=== PATIENT | male | born 1970 | race Caucasian/White ===

== ENCOUNTER 2017-07-06 00:45 | Inpatient (IN) | payer MEDICAID ==
[2017-07-06] VITALS (10 sets, daily range): BP systolic 92–114; BP diastolic 65–91; BMI 24.4
[~2017-07-06] VITALS: Ht 188 cm; Wt 82.1 kg
--- NOTE | ~2017-07-06 | EC ---
PATIENT:CORINA KUMARI DATE OF SERVICE: 07/06/17 SEX: M MEDICAL RECORD: [id number] DATE OF : 66 LOCATION:[facility] AGE OF PATIENT: 47 ADMISSION DATE: 07/06/17 REFERRING PHYSICIAN: INTERPRETING PHYSICIAN: LUZMA MCNALLY MD ECHOCARDIOGRAM REPORT ECHO CHARGES 4 ECHO COMPLETE CLINICAL DIAGNOSIS: CP ECHOCARDIOGRAPHIC MEASUREMENTS (adult normal given) AC root (d.<3.7cm) 3.7 cm LV Septum d (<1.2 cm> 1.1 cm Valve Excursion 2.0 cm LV Septum (systole) 1.5 cm Left Atria (s.<4.0cm> 4.5 cm LVPW d(<1.2cm) 1.1 cm RV (d.<2.3cm) 4.2 cm LVPW (sytole) 1.5 cm LV diastole(<5.6CM) 4.0 cm MV E-F(>70mm/sec) cm LV systole 2.0 cm LVOT Diameter 2.0 cm MV exc.(>10mm) cm Est.ejection fraction (50-75%) % Pericardial Effusion N DOPPLER: LVIT cm/sec A 34.0 cm/sec E 51.0 cm/sec LA cm/sec RVSP 54.3 mmHg LVOT 75.0 cm/sec AOP1/2T m/s Asc. Ao 101 cm/sec RVOT 40.0 cm/sec RA cm/sec PA 48.0 cm/sec AV Gradient Peak 4.1 mmHg AV Mean 2.4 mmHg AV Area 2.5 cm MV Gradient Peak 1.8 mmHg MV Mean 0.57 mmHg MV Area cm COMMENTS: General Assembler Installer: Leanne LINDQUIST Director Drug Safety: 1 Dr. Mcnally TAPE# PACS DATE OF SERVICE: 07/06/2017 FINDINGS: 1. Left ventricular chamber size is mildly dilated. Left ventricular systolic function is markedly reduced. Overall ejection fraction 30%. 2. Left atrium is dilated at 4.5 cm. Right atrium and right ventricular chamber sizes are severely dilated. 3. Valvular structures have normal structure and motion. 4. Doppler interrogation reveals [id number]-ax-[id number] tricuspid regurgitation. No other valvular insufficiency or stenosis. Pulmonary systolic pressure is ECHOCARDIOGRAM REPORT [id number] CORINA KUMARI elevated, estimated at 54 mmHg. 5. No evidence of pericardial effusion or left ventricular thrombus. TRANSINT:[id number] Voice Confirmation ID: [id number] DOCUMENT ID: [id number] LUZMA MCNALLY MD at 1202 CC: [id number] DICTATION DATE: 07/06/17 1240 RETAIL BAKERY MANAGER: 07/06/17 1253 ADM IN [facility] [address] [id number]
--- NOTE | ~2017-07-06 | HEMODYNAMI ---
PATIENT:CORINA KUMARI MEDICAL RECORD: [id number] : 66 LOCATION:[facility] D.2307 ADMISSION DATE: 07/06/17 Generatedon:07/08/201715:22 Patient name: CORINA KUMARI Patient #: [id number] SSN: : 1970 Date of study: 07/08/2017 Page: Of Hemodynamic Procedure Report Patient Data Patient Demographics Procedure consent was obtained First Name: CORINA Gender: Male Last Name: KENYETTA : 1970 Patient #: [id number] Age: 47 year(s) Race: Unknown Additional ID: [id number] Contact details [address]: [address] [place] [address] State: [place] City: [place] Zip code: [address] Admission Admission Data Admission Date: 07/06/2017 Admission Time: 0:45 Room #: D.2307 Procedure Procedure Types Cath Procedure Diagnostic Procedure Right Heart RHC and LHC w/Coronaries Procedure Description Procedure Date Procedure Date: 07/08/2017 Procedure Start Time: 15:09 Procedure End Time: 15:21 Procedure Staff Name Function Roger Mcnally MD Performing Physician Inna Swanson RT Monitor Nimisha Garcia RT Scrub Wolf Hernandez RN Nurse Procedure Data Cath Procedure Fluoroscopy Diagnostic fluoroscopy Total fluoroscopy Time: 1.6 time: 1.6 min min Diagnostic fluoroscopy Total fluoroscopy dose: 250 dose: 250 mGy mGy Contrast Material Contrast Material Type Amount (ml) Isovue 300 41 Entry Location Entry Primary Successful Side Size Upsize Upsize Entry Closure Workman ccessful Closure Location (Fr) 1 (Fr) 2 (Fr) Remarks Device Remarks Femoral Right 7 Fr Manual vein Short Compression Femoral Right 5 Fr Exoseal artery Estimated blood loss: 5 ml Diagnostic catheters Device Type Used For End Catheter Placement SWAN 7Fr Thermodilution Right heart cath cather (131F7P) MULTIPACK Pigtail 5 Fr LV Angiography catheter MULTIPACK JL 4.0 5Fr Left Coronary catheter Angiography MULTIPACK 3DRC 5Fr Right Coronary catheter Angiography Procedure Complications No complications Procedure Medications Medication Administration Route Dosage Oxygen NRB 16 l/min Lidocaine 2% added to field 20 Heparin Flush Bag added to field 2 bags (1000units/500ml NS) 0.9% NaCl I.V. 50 ml/hr Fentanyl I.V. 50 mcg Hemodynamics Rest Heart Rate: 75 (bpm) Pressure Samples Time Site Value (mmHg) Purpose Heart Use Rate(bpm) 15:11 PCW 3/3(1) Snapshot 76 15:12 PA 56/35(42) Snapshot 77 15:13 RV 29/7,18 Snapshot 76 15:13 RA 20/28(20) Snapshot 73 Snapshots Pre Cath Intra NCS Post Cath Vital Signs Time Heart Resp SPO2 etCO2 NIBP (mmHg) Rhythm Pain Sedation Rate (ipm) (%) (mmHg) Status Level (bpm) 14:54:57 74 12 63 0 107/81(95) NSR 0 (11) 9(A) , No pain 14:58:59 73 18 66 0 106/75(89) NSR 0 (11) 9(A) , No pain 15:03:00 75 12 62 0 102/74(87) NSR 0 (11) 9(A) , No pain 15:07:00 75 14 60 0 101/76(88) NSR 0 (11) 9(A) , No pain 15:10:57 77 15 61 0 106/80(100) NSR 0 (11) 9(A) , No pain 15:14:51 76 14 63 0 103/80(88) NSR 0 (11) 9(A) , No pain 15:18:51 78 11 63 0 111/79(92) NSR 0 (11) 9(A) , No pain Medications Time Medication Route Dose Verified Delivered Reason Notes Effe ctiveness by by 14:53:32 Oxygen NRB 16 Roger Cindyie used for This l/min Dali Rg RN procedure method per dr lubin 14:58:05 Lidocaine 2% added 20ml Roger Duran for local This to vial Dali Mcnally MD anesthetic method field per dr lubin 14:58:19 Heparin Flush added 2 Roger Roger used for This Bag to bags Dali Mcnally MD procedure method (1000units/500ml field per dr HECTOR lubin 14:58:25 0.9% NaCl I.V. 50 Roger Buffie Per This ml/hr Dali Rg RN physician method per dr rosenthal. 15:01:50 Fentanyl I.V. 50 Roger Castaneda for mcg Dali Rg RN sedation Procedure Log Time Note 14:40:37 Plan of Care:Hemodynamics will remain stable., Cardiac rhythm will remain stable., Comfort level will be maintained., Respiratory function will remain adequate., Patient/ family verbilizes understanding of procedure., Procedure tolerated without complication., Recovers from procedure without complications.. 14:53:32 Oxygen 16 l/min NRB was administered by Tonya Rg RN; used for procedure; This method per dr rosenthal. 14:53:33 Nimisha Garcia RT(R) sent for patient. Start room use. 14:53:33 Time tracking: Regular hours 14:53:56 Patient received from CVICU to CCL 2 Alert and oriented. Tansferred to table in Supine position. 14:53:57 Warm blankets applied, and silvia hugger turned on for patient comfort. 14:53:58 Correct patient and procedure confirmed by team. 14:53:59 Signed procedure consent form obtained from patient. 14:54:00 ECG and BP/O2 sat monitors applied to patient. 14:54:01 Vital chart was started 14:54:02 Baseline sample Acquired. 14:54:06 Rhythm: sinus rhythm 14:54:09 Full Disclosure recording started 14:54:45 H&P Date Dictated: 07/08/2017 Within 30 days and on chart., H&P Addendum completed by physician on day of procedure. (MUST COMPLETE FOR ALL OUTPATIENTS). 14:54:47 Pre-procedure instructions explained to patient. 14:54:47 Pre-op teaching completed and patient verbalized understanding. 14:54:55 Family in waiting room. 14:55:26 Patient NPO since Midnight. 14:55:44 Is the patient allergic to Iodine/contrast media? No. 14:55:46 Was the patient premedicated? No 14:56:14 Is patient on blood thinner?No 14:56:16 Patient diabetic? No. 14:56:18 Previous problem with sedation/anesthesia? No ? 14:56:20 Snore? Yes 14:56:22 Sleep apnea? Yes 14:56:23 Deviated septum? No 14:56:24 Opens mouth fully? Yes 14:56:24 Sticks out tongue? Yes 14:56:26 Airway obstruction? No ? 14:56:29 Dentures? No ? 14:56:32 Pre procedure: right dorsailis pedis pulse 1+ Palpable, but thready & weak; easily obliterated 14:56:42 Patient pain scale 0/10 ?. 14:56:54 IV patent on arrival in right forearm with 0.9% NaCl at [facility]. 14:56:59 Lab results completed and on chart. 14:57:03 Right groin area was prepped with chlora-prep and draped in sterile fashion 14:57:04 Alarms reviewed by R. N. 14:57:04 Sharps counted by scrub and verified by R.N. 14:58:05 Lidocaine 2% 20ml vial added to field was administered by Roger Mcnally MD; for local anesthetic; This method per dr rosenthal. 14:58:19 Heparin Flush Bag (1000units/500ml NS) 2 bags added to field was administered by Roger Mcnally MD; used for procedure; This method per dr rosenthal. 14:58:25 0.9% NaCl 50 ml/hr I.V. was administered by Tonya Rg RN; Per physician; This method per dr rosenthal. 15:01:11 Physician paged 15:01:22 Physician arrived 15:01:23 --------ALL STOP TIME OUT------ 15:01:24 Final Timeout: patient, procedure, and site verified with staff and physician. All members of the team are in agreement. 15:01:27 Right groin site verified by team. 15:01:34 Physical assessment completed. ASA score P 3 - A patient with severe systemic disease as per Roger Mcnally MD. 15:01:42 Sedation plan: IV Moderate Sedation Medication:Versed, Fentanyl 15:01:50 Fentanyl 50 mcg I.V. was administered by Tonya Rg RN; for sedation; 15:02:03 Use device set Femoral Dx 15:02:13 ACIST Syringe (30943) opened to sterile field. 15:02:14 Bag Decanter (2002) opened to sterile field. 15:02:15 Medline Cath Pack ([id number]) opened to sterile field. 15:02:15 SHEATH 5FR Palmer (QDE068) opened to sterile field. 15:02:16 DIAGNOSTIC WIRE .035 260cm J wire (507863) opened to sterile field. 15:02:18 ACIST Hand Control (30179) opened to sterile field. 15:02:18 ACIST Manifold (34504) opened to sterile field. 15:02:19 DIAGNOSTIC Multipack 5Fr catheter set (QL3667) opened to sterile field. 15:02:19 Tegaderm 4 x 4 (1626W) opened to sterile field. 15:02:21 PERCUTANEOUS ENTRY 19GA needle opened to sterile field. 15:02:42 SHEATH 7FR Palmer (YCE724) opened to sterile field. 15:07:29 Zero performed for pressure channel P1 15:07:33 Zero performed for pressure channel P1 15:09:16 Procedure started. 15:09:23 Local anesthetic to right femoral artery with Lidocaine 2% by Roger Mcnally MD.INITIAL ACCESS ONLY 15:09:53 A 7 Fr Short sheath was inserted into the Right Femoral vein 15:10:16 A 5 Fr sheath was inserted into the Right Femoral artery 15:10:39 A SWAN 7Fr Thermodilution cather (131F7P) was advanced over the wire and used for Right heart cath. 15:10:45 [place] "C" tip catheter inserted 15:12:40 PW Mean: 3, 15:12:52 PA Pressure 57/36 15:14:02 RV Pressure: 30/9 15:14:14 RA Mean: 20 15:14:17 Catheter removed. 15:14:27 A MULTIPACK Pigtail 5 Fr catheter was advanced over the wire and used for LV Angiography. 15:14:36 LV gram done using PRICE 15:14:40 EF : 40 % 15:14:43 Injector settings: Ml/sec: 10, Volume: 20, 15:14:44 Catheter removed. 15:14:57 A MULTIPACK JL 4.0 5Fr catheter was advanced over the wire and used for Left Coronary Angiography. 15:15:31 Catheter removed. 15:15:50 A MULTIPACK 3DRC 5Fr catheter was advanced over the wire and used for Right Coronary Angiography. 15:16:49 Catheter removed. 15:16:56 Sheath removed intact; hemostasis achieved with Exoseal to the Right Femoral artery. 15:16:59 Procedure ended.(Physican Out) 15:17:05 Sheath removed intact; hemostasis achieved with Manual Compression to the Right Femoral vein. 15:17:34 Fluoroscopy time 01.60 minutes. 15:17:37 Fluoroscopy dose: 250 mGy 15:17:37 Flurop Dose total: 250 15:18:19 Contrast amount:Isovue 300 41ml. 15:18:20 Sharps counted by scrub and verified by R.N. 15:18:26 Insertion/operative site no bleeding no hematoma. 15:18:29 Post-op/insertion site Right Femoral artery dressed using a 4 x 4 and Tegaderm. 15:18:32 Post right femoral artery:stable, clean and dry 15:18:33 Post Procedure Pulses reassessed and unchanged 15:18:35 Post-procedure physical assessment completed. ASA score P 2 - A patient with mild systemic disease as per Roger Mcnally MD. 15:18:38 Post procedure rhythm: unchanged. 15:18:41 Estimated blood loss: 5 ml 15:18:42 Post procedure instruction explained to patient.Patient verbalizes understanding. 15:18:42 Patient needs reinforcement of post procedure teaching. 15:19:22 Procedure Complication : No complications 15:20:35 Procedure and supply charges have been captured, reviewed, submitted and are correct. 15:20:42 EXOSEAL 5Fr (EX500) opened to sterile field. 15:21:00 See physician's report for complete and final results. 15:21:26 Vital chart was stopped 15:21:31 Report given to ICU. 15:21:35 Patient transfered to ICU with Bed. 15:21:41 Procedure ended. 15:21:41 Full Disclosure recording stopped 15:21:45 End room use (Document Last) Device Usage Item Name Manufacture Quantity Catalog Hospital Part Current Minima l Lot# / Number Charge Number Stock Stock Serial# Code ACIST Syringe Acist 1 86751 189661 050785 003211 20 (77390) Medical Systems Inc Bag Decanter Microtek 1 805612 15138 537807 5 () Medical Inc. Medline Cath Cardinal 1 [id number] 598630 75533 308517 5 Pack Health ([id number]) SHEATH 5FR Terumo 1 DFH459 588352 450847 011033 40 Palmer (GFB702) DIAGNOSTIC St Liam 1 535011 446771 011265 281658 30 WIRE .035 260cm J wire (320157) ACIST Hand Acist 1 31721 291184 266314 375786 5 Control Medical (49895) Systems Inc ACIST Manifold Acist 1 68787 434668 851883 500242 5 (29943) Medical Systems Inc DIAGNOSTIC Cardinal 1 IN3973 256456 15789 223036 30 Multipack 5Fr Health catheter set (BN8223) Tegaderm 4 x 4 3M 1 1626W 583220 673605 478841 5 (1626W) PERCUTANEOUS Cook Medical 1 X74516 022561 822162 5 ENTRY 19GA needle SHEATH 7FR Terumo 1 CHY881 448338 322399 075655 5 Palmer (PFE399) SWAN 7Fr Cordoba 1 131F7P 942004 13214 154777 3 Thermodilution Lifesciences cather (131F7P) MULTIPACK Cardinal 1 143627 5 Pigtail 5 Fr Health catheter MULTIPACK JL Cardinal 1 489814 5 4.0 5Fr Health catheter MULTIPACK 3DRC Cardinal 1 [id number] 5 5Fr catheter Health EXOSEAL 5Fr Cardinal 1 EX500 213078 343159 070034 10 (EX500) Health Signature Audit [place] Stage Time Signature Unsigned Intra-Procedure 07/08/2017 Inna 3:21:57 PM Counts RT(R) Signatures Monitor : Inna Signature : Counts RT Date : Time : [id number] [place] [address]
--- NOTE | ~2017-07-06 | EC ---
PATIENT:CORINA KUMARI DATE OF SERVICE: 07/06/17 SEX: M MEDICAL RECORD: [id number] DATE OF : 66 LOCATION:[facility] AGE OF PATIENT: 47 ADMISSION DATE: 07/06/17 REFERRING PHYSICIAN: INTERPRETING PHYSICIAN: LUZMA MCNALLY MD ECHOCARDIOGRAM REPORT ECHO CHARGES 5 ECHO LIMITED CLINICAL DIAGNOSIS: LIMITED BUBBLE STUDY TO ASSESS FOR ASD/VSD ECHOCARDIOGRAPHIC MEASUREMENTS (adult normal given) AC root (d.<3.7cm) 3.7 cm LV Septum d (<1.2 cm> 1.1 cm Valve Excursion 2.0 cm LV Septum (systole) 1.5 cm Left Atria (s.<4.0cm> 4.5 cm LVPW d(<1.2cm) 1.1 cm RV (d.<2.3cm) 4.2 cm LVPW (sytole) 1.5 cm LV diastole(<5.6CM) 4.0 cm MV E-F(>70mm/sec) cm LV systole 2.0 cm LVOT Diameter 2.0 cm MV exc.(>10mm) cm Est.ejection fraction (50-75%) % Pericardial Effusion N DOPPLER: LVIT cm/sec A 34.0 cm/sec E 51.0 cm/sec LA cm/sec RVSP 54.3 mmHg LVOT 75.0 cm/sec AOP1/2T m/s Asc. Ao 101 cm/sec RVOT 40.0 cm/sec RA cm/sec PA 48.0 cm/sec AV Gradient Peak 4.1 mmHg AV Mean 2.4 mmHg AV Area 2.5 cm MV Gradient Peak 1.8 mmHg MV Mean 0.57 mmHg MV Area cm COMMENTS: ASD NOTED Ict Account Manager: Manjinder BECKHAM Family Engagement Specialist: 1 Dr. Mcnally TAPE# PACS DATE OF SERVICE: 07/07/2017 PROCEDURE: Bubble study echocardiographically. FINDINGS: There is evidence of atrial septal defect on the bubble study. TRANSINT:[id number] Voice Confirmation ID: [id number] DOCUMENT ID: [id number] ECHOCARDIOGRAM REPORT [id number] KENYETTALUZMA NG MD at 1202 CC: [id number] DICTATION DATE: 07/07/17 1232 CONTINUOUS IMPROVEMENT COORDINATOR: 07/07/[address] [facility] [address] [place] [address]
--- NOTE | ~2017-07-06 | OP ---
PATIENT NAME: CORINA KUMARI MEDICAL RECORD: [id number] :66 LOCATION:.[facility] D.2307 ADMISSION DATE:07/06/17 SURGEON: LUZMA DICKERSON MD DATE OF OPERATION: 07/08/2017 PROCEDURES: 1. Left heart catheterization. 2. Right heart catheterization. 3. Selective coronary angiography. 4. Left ventriculogram. INDICATION: ASD for repair. PROCEDURE IN DETAIL: After informed consent was obtained and after detailed explanation of risks, benefits as well as alternative therapies, the patient elected to proceed with angiogram and heart catheterization. The right femoral area was prepped and draped in normal sterile fashion. The right femoral artery and vein were cannulated via modified Seldinger technique with placement of 5 and 7-Egyptian sheath. All catheters exchanged through this sheath. FINDINGS: The left ventriculogram was performed in standard 30-degree PRICE view, reveals global hypokinesis throughout all segments. Overall ejection fraction in the 35% to 40% range. SELECTIVE CORONARY ANGIOGRAPHY: Left main, left anterior descending, left circumflex, and right coronary artery are all smooth-walled vessels with no angiographic evidence of coronary artery disease. HEMODYNAMICS: Right atrial mean pressure is elevated at 20, right ventricular pressure is 30/9, pulmonary artery pressure is 57/36, pulmonary capillary wedge mean of 10. OVERALL IMPRESSION: No coronary disease is present, mildly depressed left ventricular systolic function. Evaluate for ASD repair. TRANSINT:[id number] Voice Confirmation ID: [id number] DOCUMENT ID: [id number] LUZMA DICKERSON MD at 1202 CC: [id number] DICTATION DATE: 07/08/17 1521 IRRIGATION INSTALLATION SPECIALIST: 07/08/17 1601 ADM IN [facility] [address] [place] [address]
[2017-07-06] MEDS ORDERED: DILANTIN100 MG PO (01:20)
[2017-07-06] MEDS ORDERED: COMBIVENT RESPIM4 GM INH (01:20)
[2017-07-06 07:07] LABS: LDL-HDL RATIO 2.6 ratio (1.5-3.5)
[2017-07-06 09:28] LABS: BASOPHILS 0.5 % (0-2); EOSINOPHILS 1.1 % (0-7); HEMATOCRIT 40.7 % (42.0-54.0); HEMOGLOBIN 14.8 g/dL (13.5-17.5); IMMATURE GRANULOCYTES 1.8 % (0-5); LYMPHOCYTES 22.2 % (15-50); MCHC 36.4 g/dL (31.0-37.0); MCV 96.2 fL (80.0-100.0); MONOCYTES 10.4 % (2-11); PLATELET COUNT 140 10x3/uL (130-400); RBC 4.23 10x6/uL (4.20-6.10); RDW 12.5 % (11.5-14.5); WBC 6.5 10x3/uL (4.8-10.8)
[2017-07-06 09:38] LABS: ALBUMIN 2.8 g/dL (3.4-5.0); ALKALINE PHOSPHATASE 68 U/L (46-116); ALT (SGPT) 19 U/L (10-68); BILIRUBIN - TOTAL 2.24 mg/dL (0.2-1.3); CALCIUM 8.4 mg/dL (8.5-10.1); CARBON DIOXIDE 20.2 mmol/L (21.0-32.0); CREATININE - SERUM 0.7 mg/dL (0.6-1.3); GLUCOSE 92 mg/dL (74-106); MAGNESIUM - SERUM 1.7 mg/dL (1.8-2.4); POTASSIUM - SERUM 3.2 mmol/L (3.5-5.1); PROTEIN - SERUM 8.5 g/dL (6.4-8.2); UREA NITROGEN 9 mg/dL (7-18); eGFR NON AFRICAN AMERICAN > 90 mL/min (90-120)
[2017-07-06 09:48] LABS: INR 1.39 (0.85-1.17); PROTIME 16.6 SECONDS (11.6-15.0)
[2017-07-06 09:49] LABS: CALC OSMOLALITY 231 mosm/kg (275-300)
[2017-07-06 09:50] LABS: CHLORIDE - SERUM 83 mmol/L (98-107); SODIUM 115 mmol/L (136-145)
[2017-07-06 10:36] LABS: % SATURATION 28 % (15-55); IRON 86 ug/dl (35-150); TOTAL IRON BIND CAPACITY 297 ug/dl (260-445); UNSAT IRON BIND CAPACITY 211 ug/dl (150-375)
[2017-07-06 10:49] LABS: CKMB 1.6 U/L (0.0-3.6); CREATINE KINASE 73 UL (21-232)
[2017-07-06 10:51] LABS: PHOSPHOROUS 2.8 mg/dL (2.5-4.9); TROPONIN-I 0.098 ng/mL (0.000-0.060)
[2017-07-06 16:55] LABS: CKMB 1.7 U/L (0.0-3.6); CREATINE KINASE 74 UL (21-232)
[2017-07-06 16:59] LABS: TROPONIN-I 0.062 ng/mL (0.000-0.060)
[2017-07-06 21:51] LABS: CKMB 1.3 U/L (0.0-3.6); CREATINE KINASE 62 UL (21-232); TROPONIN-I 0.054 ng/mL (0.000-0.060)
[2017-07-07] VITALS (24 sets, daily range): BP systolic 87–126; BP diastolic 64–91; Ht 188 cm; Wt 82.1 kg
[2017-07-07 05:11] LABS: BASOPHILS 0.2 % (0-2); EOSINOPHILS 0.2 % (0-7); HEMATOCRIT 46.1 % (42.0-54.0); HEMOGLOBIN 16.4 g/dL (13.5-17.5); LYMPHOCYTES 10.6 % (15-50); MCH 34.6 pg (26.0-34.0); MCHC 35.6 g/dL (31.0-37.0); MCV 97.3 fL (80.0-100.0); MEAN PLATELET VOLUME 10.5 fL (7.4-10.4); MONOCYTES 6.6 % (2-11); NEUTROPHILS 80.4 % (40-80); PLATELET COUNT 154 10x3/uL (130-400); RBC 4.74 10x6/uL (4.20-6.10); RDW 12.4 % (11.5-14.5)
[2017-07-07 05:32] LABS: ALKALINE PHOSPHATASE 82 U/L (46-116); ALT (SGPT) 15 U/L (10-68); BILIRUBIN - TOTAL 1.92 mg/dL (0.2-1.3); CALCIUM 8.7 mg/dL (8.5-10.1); CARBON DIOXIDE 23.7 mmol/L (21.0-32.0); CHLORIDE - SERUM 88 mmol/L (98-107); MAGNESIUM - SERUM 1.9 mg/dL (1.8-2.4); PROTEIN - SERUM 9.1 g/dL (6.4-8.2); SODIUM 121 mmol/L (136-145); UREA NITROGEN 10 mg/dL (7-18)
[2017-07-07 05:42] LABS: CALC OSMOLALITY 246 mosm/kg (275-300); GLUCOSE 174 mg/dL (74-106); eGFR NON AFRICAN AMERICAN 84 mL/min (90-120)
[2017-07-07 09:20] LABS: FOLATE (FOLIC ACID) - SERUM 9.4 ng/mL (>3.0)
[2017-07-08] VITALS (23 sets, daily range): BP systolic 90–135; BP diastolic 62–92
[2017-07-08 04:25] LABS: BASOPHILS 0.1 % (0-2); EOSINOPHILS 0.2 % (0-7); HEMATOCRIT 44.1 % (42.0-54.0); HEMOGLOBIN 15.6 g/dL (13.5-17.5); IMMATURE GRANULOCYTES 1.9 % (0-5); LYMPHOCYTES 10.6 % (15-50); MCH 35.1 pg (26.0-34.0); MCHC 35.4 g/dL (31.0-37.0); MCV 99.1 fL (80.0-100.0); MEAN PLATELET VOLUME 10.4 fL (7.4-10.4); MONOCYTES 6.3 % (2-11); NEUTROPHILS 80.9 % (40-80); RBC 4.45 10x6/uL (4.20-6.10); RDW 12.9 % (11.5-14.5)
[2017-07-08 04:26] LABS: PLATELET COUNT 186 10x3/uL (130-400); WBC 10.9 10x3/uL (4.8-10.8)
[2017-07-08 04:34] LABS: ALBUMIN 2.8 g/dL (3.4-5.0); ALKALINE PHOSPHATASE 82 U/L (46-116); CALCIUM 8.5 mg/dL (8.5-10.1); CHLORIDE - SERUM 93 mmol/L (98-107); CREATININE - SERUM 0.9 mg/dL (0.6-1.3); GLUCOSE 171 mg/dL (74-106); MAGNESIUM - SERUM 1.9 mg/dL (1.8-2.4); POTASSIUM - SERUM 3.9 mmol/L (3.5-5.1); PROTEIN - SERUM 8.9 g/dL (6.4-8.2); SODIUM 127 mmol/L (136-145); eGFR NON AFRICAN AMERICAN > 90 mL/min (90-120)
[2017-07-08 04:35] LABS: ALT (SGPT) 23 U/L (10-68); CALC OSMOLALITY 259 mosm/kg (275-300); UREA NITROGEN 14 mg/dL (7-18)
[2017-07-09] VITALS (24 sets, daily range): BP systolic 84–114; BP diastolic 71–85
[2017-07-09 06:07] LABS: BASOPHILS 0.2 % (0-2); EOSINOPHILS 0.9 % (0-7); HEMATOCRIT 43.6 % (42.0-54.0); HEMOGLOBIN 15.3 g/dL (13.5-17.5); IMMATURE GRANULOCYTES 1.5 % (0-5); LYMPHOCYTES 27.2 % (15-50); MCHC 35.1 g/dL (31.0-37.0); MCV 99.8 fL (80.0-100.0); MEAN PLATELET VOLUME 9.9 fL (7.4-10.4); MONOCYTES 8.8 % (2-11); NEUTROPHILS 61.4 % (40-80); PLATELET COUNT 205 10x3/uL (130-400); RBC 4.37 10x6/uL (4.20-6.10); RDW 13.3 % (11.5-14.5); WBC 9.7 10x3/uL (4.8-10.8)
[2017-07-09 06:35] LABS: ALBUMIN 2.8 g/dL (3.4-5.0); ALKALINE PHOSPHATASE 82 U/L (46-116); BILIRUBIN - TOTAL 0.93 mg/dL (0.2-1.3); CALCIUM 8.4 mg/dL (8.5-10.1); CARBON DIOXIDE 21.5 mmol/L (21.0-32.0); CHLORIDE - SERUM 93 mmol/L (98-107); CREATININE - SERUM 0.9 mg/dL (0.6-1.3); GLUCOSE 132 mg/dL (74-106); MAGNESIUM - SERUM 1.8 mg/dL (1.8-2.4); PHOSPHOROUS 2.7 mg/dL (2.5-4.9); POTASSIUM - SERUM 3.9 mmol/L (3.5-5.1); PROTEIN - SERUM 9.1 g/dL (6.4-8.2); SODIUM 124 mmol/L (136-145); eGFR NON AFRICAN AMERICAN > 90 mL/min (90-120)
[2017-07-09 06:42] LABS: ALT (SGPT) 29 U/L (10-68); CALC OSMOLALITY 254 mosm/kg (275-300); UREA NITROGEN 20 mg/dL (7-18)
[2017-07-10] VITALS (24 sets, daily range): BP systolic 87–128; BP diastolic 60–82
[2017-07-10 03:07] LABS: BASOPHILS 0.2 % (0-2); HEMATOCRIT 42.6 % (42.0-54.0); HEMOGLOBIN 14.7 g/dL (13.5-17.5); IMMATURE GRANULOCYTES 1.1 % (0-5); LYMPHOCYTES 28.5 % (15-50); MCH 34.4 pg (26.0-34.0); MCHC 34.5 g/dL (31.0-37.0); MCV 99.8 fL (80.0-100.0); MEAN PLATELET VOLUME 9.7 fL (7.4-10.4); MONOCYTES 8.2 % (2-11); PLATELET COUNT 179 10x3/uL (130-400); RBC 4.27 10x6/uL (4.20-6.10); RDW 13.4 % (11.5-14.5); WBC 8.4 10x3/uL (4.8-10.8)
[2017-07-10 03:33] LABS: ALBUMIN 2.7 g/dL (3.4-5.0); ALKALINE PHOSPHATASE 94 U/L (46-116); ALT (SGPT) 34 U/L (10-68); BILIRUBIN - TOTAL 0.95 mg/dL (0.2-1.3); CALC OSMOLALITY 260 mosm/kg (275-300); CALCIUM 8.2 mg/dL (8.5-10.1); CARBON DIOXIDE 23.8 mmol/L (21.0-32.0); CHLORIDE - SERUM 96 mmol/L (98-107); GLUCOSE 108 mg/dL (74-106); MAGNESIUM - SERUM 1.6 mg/dL (1.8-2.4); PHOSPHOROUS 2.4 mg/dL (2.5-4.9); POTASSIUM - SERUM 3.6 mmol/L (3.5-5.1); PROTEIN - SERUM 8.3 g/dL (6.4-8.2); SODIUM 128 mmol/L (136-145); UREA NITROGEN 21 mg/dL (7-18); eGFR NON AFRICAN AMERICAN 84 mL/min (90-120)
[2017-07-11] VITALS (24 sets, daily range): BP systolic 97–118; BP diastolic 64–93
[2017-07-11 04:08] LABS: BASOPHILS 0.3 % (0-2); EOSINOPHILS 0.6 % (0-7); HEMATOCRIT 44.7 % (42.0-54.0); HEMOGLOBIN 15.3 g/dL (13.5-17.5); IMMATURE GRANULOCYTES 1.2 % (0-5); LYMPHOCYTES 25.6 % (15-50); MCH 34.8 pg (26.0-34.0); MCHC 34.2 g/dL (31.0-37.0); MCV 101.6 fL (80.0-100.0); MEAN PLATELET VOLUME 9.6 fL (7.4-10.4); MONOCYTES 7.7 % (2-11); NEUTROPHILS 64.6 % (40-80); PLATELET COUNT 183 10x3/uL (130-400); RDW 13.5 % (11.5-14.5); WBC 6.8 10x3/uL (4.8-10.8)
[2017-07-11 04:25] LABS: ALBUMIN 2.9 g/dL (3.4-5.0); ALKALINE PHOSPHATASE 76 U/L (46-116); ALT (SGPT) 29 U/L (10-68); BILIRUBIN - TOTAL 1.15 mg/dL (0.2-1.3); CALC OSMOLALITY 264 mosm/kg (275-300); CALCIUM 8.8 mg/dL (8.5-10.1); CARBON DIOXIDE 23.5 mmol/L (21.0-32.0); CHLORIDE - SERUM 95 mmol/L (98-107); GLUCOSE 118 mg/dL (74-106); MAGNESIUM - SERUM 1.9 mg/dL (1.8-2.4); POTASSIUM - SERUM 3.8 mmol/L (3.5-5.1); PROTEIN - SERUM 8.5 g/dL (6.4-8.2); SODIUM 130 mmol/L (136-145); UREA NITROGEN 21 mg/dL (7-18); eGFR NON AFRICAN AMERICAN 84 mL/min (90-120)
[2017-07-12] VITALS (23 sets, daily range): BP systolic 92–113; BP diastolic 47–90
[2017-07-12 04:15] LABS: BASOPHILS 0.3 % (0-2); EOSINOPHILS 1.2 % (0-7); HEMATOCRIT 43.3 % (42.0-54.0); HEMOGLOBIN 14.8 g/dL (13.5-17.5); IMMATURE GRANULOCYTES 1.2 % (0-5); LYMPHOCYTES 28.2 % (15-50); MCH 35.1 pg (26.0-34.0); MCHC 34.2 g/dL (31.0-37.0); MCV 102.6 fL (80.0-100.0); MEAN PLATELET VOLUME 9.6 fL (7.4-10.4); MONOCYTES 7.8 % (2-11); NEUTROPHILS 61.3 % (40-80); PLATELET COUNT 169 10x3/uL (130-400); RBC 4.22 10x6/uL (4.20-6.10); RDW 13.7 % (11.5-14.5); WBC 7.7 10x3/uL (4.8-10.8)
[2017-07-12 04:28] LABS: CALC OSMOLALITY 269 mosm/kg (275-300); CALCIUM 8.6 mg/dL (8.5-10.1); CARBON DIOXIDE 25.4 mmol/L (21.0-32.0); CHLORIDE - SERUM 98 mmol/L (98-107); CREATININE - SERUM 1.1 mg/dL (0.6-1.3); GLUCOSE 108 mg/dL (74-106); POTASSIUM - SERUM 3.6 mmol/L (3.5-5.1); SODIUM 132 mmol/L (136-145); UREA NITROGEN 25 mg/dL (7-18); eGFR NON AFRICAN AMERICAN 75 mL/min (90-120)
[2017-07-13] VITALS (15 sets, daily range): BP systolic 95–121; BP diastolic 64–95
[2017-07-13 04:37] LABS: BASOPHILS 0.4 % (0-2); EOSINOPHILS 1.1 % (0-7); HEMATOCRIT 42.1 % (42.0-54.0); HEMOGLOBIN 14.1 g/dL (13.5-17.5); IMMATURE GRANULOCYTES 0.9 % (0-5); MCH 34.6 pg (26.0-34.0); MCHC 33.5 g/dL (31.0-37.0); MCV 103.4 fL (80.0-100.0); MEAN PLATELET VOLUME 9.5 fL (7.4-10.4); MONOCYTES 8.3 % (2-11); NEUTROPHILS 59.3 % (40-80); PLATELET COUNT 171 10x3/uL (130-400); RBC 4.07 10x6/uL (4.20-6.10); RDW 13.9 % (11.5-14.5)
[2017-07-13 04:44] LABS: CALC OSMOLALITY 281 mosm/kg (275-300); CALCIUM 8.1 mg/dL (8.5-10.1); CARBON DIOXIDE 24.3 mmol/L (21.0-32.0); CHLORIDE - SERUM 102 mmol/L (98-107); GLUCOSE 124 mg/dL (74-106); POTASSIUM - SERUM 3.2 mmol/L (3.5-5.1); SODIUM 138 mmol/L (136-145); UREA NITROGEN 26 mg/dL (7-18); eGFR NON AFRICAN AMERICAN 84 mL/min (90-120)
[2017-07-13] MEDS ORDERED: TAMIFLU75 MG PO (10:15)
[2017-07-13] MEDS ORDERED: VIBRAMYCIN 100100 MG PO (10:15)
[2017-07-13] MEDS ORDERED: BYSTOLIC2.5 MG PO (10:16)
[2017-07-13] MEDS ORDERED: REVATIO20 MG PO (10:16)
[2017-07-13] MEDS ORDERED: THIAMINE HCL50 MG PO (10:20)
[2017-07-13] MEDS ORDERED: MULTI-DAY VITAM1 TAB PO (10:20)
[2017-07-13] MEDS ORDERED: LIBRIUM25 MG PO (10:25)
== END 2017-07-13 15:17 | disposition home or self-care (01) | DRG 280 ==
LOC: D.M2 00:45 → D.ICU 00:45
PROVIDERS: Internal Medicine Interventional Cardiology; Internal Medicine Nephrology; Internal Medicine Pulmonary Disease
PROC: 5A09457 Assistance with Respiratory Ventilation, 24-96 Consecutive Hours, Continuous Positive Airway Pressure (ICD-10-PCS; principal; 2017-07-07)
PROC: B2151ZZ Fluoroscopy of Left Heart using Low Osmolar Contrast (ICD-10-PCS; 2017-07-08)
PROC: 4A023N8 Measurement of Cardiac Sampling and Pressure, Bilateral, Percutaneous Approach (ICD-10-PCS; 2017-07-08)
PROC: B2111ZZ Fluoroscopy of Multiple Coronary Arteries using Low Osmolar Contrast (ICD-10-PCS; 2017-07-08 11:30)
DX: I51.0 Cardiac septal defect, acquired (principal); I21.A1 Myocardial infarction type 2; J10.00 Influenza due to other identified influenza virus with unspecified type of pneumonia; J96.21 Acute and chronic respiratory failure with hypoxia; J44.1 Chronic obstructive pulmonary disease with (acute) exacerbation; J44.0 Chronic obstructive pulmonary disease with (acute) lower respiratory infection; I50.22 Chronic systolic (congestive) heart failure; E87.1 Hypo-osmolality and hyponatremia; I27.20 Pulmonary hypertension, unspecified; J20.9 Acute bronchitis, unspecified; F10.10 Alcohol abuse, uncomplicated; E83.42 Hypomagnesemia; E87.6 Hypokalemia; B19.20 Unspecified viral hepatitis C without hepatic coma; G40.909 Epilepsy, unspecified, not intractable, without status epilepticus; I50.810 Right heart failure, unspecified; Z87.820 Personal history of traumatic brain injury; Z87.891 Personal history of nicotine dependence